=== PATIENT | male | born 1980 | race Caucasian/White ===

== ENCOUNTER 2018-08-19 06:00 | Outpatient (CLI) | payer BC ==
[~2018-08-19] VITALS: Ht 190.5 cm; Wt 117.9 kg
[2018-08-19] MEDS ORDERED: LOSA1TAB26 PO (15:40)
[2018-08-19] MEDS ORDERED: AMLO2.5T4 PO (15:40)
== END 2018-08-19 15:43 | disposition home or self-care (01) ==
LOC: PREOP 06:00
PROVIDERS: ATTEND Internal Medicine
DX: Z01.818 Encounter for other preprocedural examination (principal)

== ENCOUNTER 2018-08-23 07:34 | Day surgery (SDC) | payer BC ==
--- NOTE | 2018-08-19 19:21 | HISTORY AND PHYSICAL ---
DATE OF SERVICE: COLONOSCOPY HISTORY AND PHYSICAL HISTORY OF PRESENT ILLNESS: The patient is a 37-year-old white male referred for screening colonoscopy per Dr. Amos. There is positive family history for colon cancer, the index case being his grandfather diagnosed around the age of 60. He has an uncle that had colon surgery that he thinks was likely related to diverticulitis and not underlying malignancy. He reports that he has felt well. He denies any bowel habit change. Occasionally, he will have some bright red blood per rectum that has been several months and he associates that with hemorrhoids. He denies any associated pain. His weight has been stable. PAST MEDICAL HISTORY: Significant for hypertension. PAST SURGICAL HISTORY: He had a pilonidal cyst removed from his back several years ago. MEDICATIONS ON ADMISSION: Include amlodipine 2.5 mg daily and unknown dose of losartan/HCTZ daily. ALLERGIES: He reports no known drug allergies. FAMILY HISTORY: Both parents are still living in their 60s and he believes his father has had history of colon polyps and again grandfather was diagnosed with colon cancer at around the age of 60. REVIEW OF SYSTEMS: CONSTITUTIONAL: He denies night sweats, chills, fever or weight change. CARDIOVASCULAR: He denies chest pain, dyspnea on exertion, orthopnea, PND, pedal edema, presyncope or syncope. CHEST: He denies shortness of breath, dyspnea on exertion, cough or wheezing. GASTROINTESTINAL: As per HPI. PHYSICAL EXAMINATION: GENERAL: Reveals a pleasant white male, appears to be in no acute distress. VITAL SIGNS: He is approximately 6 feet tall, weighing 260.8 pounds, blood pressure 120/90, slightly anxious. HEENT: Unremarkable. Sclerae nonicteric. There is no evidence for pallor. NECK: Revealed no JVD, adenopathy or bruits. CHEST: Clear to auscultation. CARDIOVASCULAR: Reveals regular rate and rhythm without murmur, S3 or S4. ABDOMEN: Soft, supple without mass, organomegaly or tenderness. EXTREMITIES: Reveal no cyanosis, clubbing or edema. RECTAL EXAM: Deferred at the time of the procedure, set up for 08/23/2018. ASSESSMENT AND PLAN: The patient is set for screening colonoscopy a little earlier than recommended due to family history for colon cancer as noted above. Prep instructions with the Suprep kit were given and questions were answered. Thank you for the referral of this pleasant gentleman. Job ID: [id number] DocumentID: [id number] Dictated Date: 08/08/2018 16:29:53 Director Of Employee Development Date: 08/08/2018 16:59:54 Dictated By: MUSHTAQ GARNETT MD
[~2018-08-23] VITALS: Ht 190.5 cm; Wt 117.9 kg
[~2018-08-23 07:34] MED LIST: AMLO2.5T4 PO; LOSA1TAB26 PO
--- OUTSIDE RECORDS SUMMARY | 2018-08-23 07:39 | XMS REPORT | Continuity of Care Document ---
Author Organization Unknown Address Unknown Allergies Active Description Code Type Severity Reaction Onset Reported/Identified Relationship to Patient Clinical Status Yes No Known Drug Allergies [id number] Drug Allergy Unknown N/A 08/19/2018 Medications There is no data. Problems Date Dx Coded Attending Type Code Diagnosis Diagnosed By 08/19/2018 MUSHTAQ GARNETT MD Ot Z01.818 ENCOUNTER FOR OTHER PREPROCEDURAL EXAMIN Procedures There is no data. Results There is no data. Encounters ACCT No. Visit Date/Time Discharge Status Pt. Type Provider Facility Loc./Unit Complaint [id number] 08/19/2018 06:00:00 08/19/2018 15:43:00 DIS Outpatient MUSHTAQ GARNETT MD [facility] PREOP COLONOSCOPY [id number] 08/26/2012 12:11:00 08/26/2012 23:59:59 CLS Outpatient [id number] 08/23/2018 08:30:00 PEN Preadmit MUSHTAQ GARNETT MD [facility] ENDO SCREENING/FAMILY HX COLON CA 05/23/10 07/02/2018 08:35:01 07/02/2018 23:59:59 CLS Outpatient
[2018-08-23] MEDS ORDERED: D5 LR IV SOLUTION 1,000 ML IV STA (07:42)
[2018-08-23] MEDS ORDERED: D5 LR IV SOLUTION 1,000 ML IV ONE (07:43)
[2018-08-23] MEDS ORDERED: HURRICAINE EXT TUBE (BENZOCAINE) XX PRN (07:45)
[2018-08-23] MEDS ORDERED: LIDOCAINE JELLY 2% 6 ML SYRINGE MM PRN (07:45)
[2018-08-23] MEDS ORDERED: MIDAZOLAM 2 MG/2 ML (VERSED) VIAL IVP ONE (07:45)
[2018-08-23] MEDS ORDERED: fentaNYL INJECTION 100 MCG/2 ML AMP IVP ONE (07:45)
[2018-08-23 07:52] VITALS: BP 139/100
[2018-08-23] MEDS ORDERED: LIDOCAINE JELLY 2% 6 ML SYRINGE ONE (08:30)
[2018-08-23] MEDS ORDERED: MIDAZOLAM 2 MG/2 ML (VERSED) VIAL ONE ×2 (08:30→08:31)
[2018-08-23] MEDS ORDERED: fentaNYL INJECTION 100 MCG/2 ML AMP ONE (08:30)
[2018-08-23 09:15] VITALS: BP 135/86
--- NOTE | 2018-08-23 09:19 | Pre-Op Note & Conscious Sedat ---
Pre-Operative Progress Note H&P Reviewed The H&P was reviewed, patient examined and no changes noted. Date H&P Reviewed: August 23, 2018 Time H&P Reviewed: 07:55 Conscious Sedation Pre-Proced ASA Score 2 For ASA 3 and 4: Consider anesthesia and medical clearance. Also, for patients with a history of failed moderate sedation consider anesthesia. Airway Lungs Heart ASA score ASA 1: a normal healthy patient ASA 2: a patient with a mild systemic disease (mid diabetes, controlled hypertension, obesity ASA 3: a patient with a severe systemic disease that limits activity (angina, COPD, prior Myocardial infarction) ASA 4: a patient with an incapacitating disease that is a constant threat to life (CHF, renal failure) ASA 5: a moribund patient not expected to survive 24 hrs. (ruptured aneurysm) ASA 6: a declared brain- patient whose organs are being harvested. For emergent operations, add the letter E after the classification Mallampati Classification Grade 3 Sedation Plan Analgesia, Amnesia, Plan communicated to team members, Discussed options with patient/fam, Discussed risks with patient/fam The patient is an appropriate candidate to undergo the planned procedure, sedation, and anesthesia. The patient immediately re-assessed prior to indication. MUSHTAQ GARNETT MD August 23, 2018 09:19
[2018-08-23 09:45] VITALS: BP 138/90
--- NOTE | 2018-08-23 20:07 | OPERATIVE REPORT ---
DATE OF SERVICE: COLONOSCOPY SUMMARY REFERRING PHYSICIAN: Dr. Corinne Amos. INDICATION FOR PROCEDURE: Screening colonoscopy, family history for colon cancer. The patient was placed in the left lateral decubitus position. The colonoscope was inserted into the rectum under direct visualization. The colonoscope was advanced to the cecum. The patient tolerated the procedure well. The quality of prep was good. FINDINGS: Rectal evaluation revealed mild to moderate BPH changes without evidence for prostate nodularity or tenderness. The patient does have a prominent perianal skin fold, possible previous hemorrhoid, but no active evidence for hemorrhoids were noted. The rectum, sigmoid and descending colon were unremarkable. Present at the splenic flexure was diminutive 3 mm sessile polyp, was photographed and biopsied and ablated with minimal subsequent blood loss. The transverse colon, hepatic flexure, ascending colon and cecum were unremarkable. ASSESSMENT: 1. One diminutive polyp was removed from the splenic flexure with an otherwise normal colonoscopy to the cecum. Considering family history, we would advocate consideration for repeat surveillance colonoscopy in 5 years as long as there are no surprises on histopathology report. 2. Digital rectal evaluation was compatible with mild to moderate BPH. I thank you for the referral of this pleasant gentleman. Job ID: [id number] DocumentID: [id number] Dictated Date: 08/23/2018 10:41:36 [employer] Architect Date: 08/23/2018 20:06:47 Dictated By: MUSHTAQ GARNETT MD
== END 2018-08-23 09:55 | disposition home or self-care (01) ==
LOC: ENDO 07:34
PROVIDERS: ATTEND Internal Medicine
DX: Z12.11 Encounter for screening for malignant neoplasm of colon (principal); K63.5 Polyp of colon; Z80.0 Family history of malignant neoplasm of digestive organs; N40.0 Benign prostatic hyperplasia without lower urinary tract symptoms; I10 Essential (primary) hypertension; Z79.899 Other long term (current) drug therapy

== ENCOUNTER → 2019-09-25 | Outpatient (CLI) | payer BC | LOC: LABNPT 10:31 | PROVIDERS: ATTEND Family Medicine | DX: R19.7 Diarrhea, unspecified (principal); Z20.828 Contact with and (suspected) exposure to other viral communicable diseases | CPT/HCPCS: 87635 ==

== ENCOUNTER → 2021-06-20 | Outpatient (CLI) | payer BC ==
--- NOTE | 2021-06-20 11:43 | Diagnostic Imaging Report ---
INDICATION: Cough, diffuse wheezing. COMPARISON: None. FINDINGS: Frontal and lateral views of the chest demonstrate normal heart size and pulmonary vascularity. Evaluation of the lung ariza suggests a 12 mm nodular opacity projecting over the right mid to lower lung field. This may be artifactual and related to nipple shadow. Otherwise, the lungs are clear. There is no focal consolidation, large effusion, or pneumothorax. The visualized osseous structures show no acute abnormalities. IMPRESSION: 1. No acute process. No signs of infiltrates, effusions, or pneumothoraces. 2. Nipple shadow versus pulmonary nodule on the right. Repeating the exam with external nipple markers is recommended. Dictated by: Dictated on workstation # [id number]
== END ==
LOC: RAD 10:58
PROVIDERS: ATTEND Family Medicine
DX: R05.9 Cough, unspecified (principal); R06.2 Wheezing
CPT/HCPCS: 71046

== ENCOUNTER → 2021-06-21 | Outpatient (CLI) | payer BC ==
--- NOTE | 2021-06-21 13:58 | Diagnostic Imaging Report ---
INDICATION: Nodules. The study is performed with nipple markers. Correlation is made with prior study one day earlier. Bilateral nipple markers were placed. The nodular density noted in the right mid to lower lung field does not represent a nipple shadow and may represent a pulmonary nodule. Left lung is clear. There is no effusion or pneumothorax IMPRESSION: Right-sided pulmonary nodule. CT of the chest would be recommended for further evaluation. Dictated by: Dictated on workstation # [id number]
== END ==
LOC: RAD 12:32
PROVIDERS: ATTEND Family Medicine
DX: R91.1 Solitary pulmonary nodule (principal)
CPT/HCPCS: 71046

== ENCOUNTER → 2021-06-24 | Outpatient (CLI) | payer BC ==
--- NOTE | 2021-06-24 10:17 | Diagnostic Imaging Report ---
PROCEDURE: CT chest without contrast. TECHNIQUE: Multiple contiguous axial images were obtained through the chest without the use of intravenous contrast. Auto Exposure Controls were utilized during the CT exam to meet ALARA standards for radiation dose reduction. INDICATION: Cough. Correlated with radiograph 06/21/2021. FINDINGS: Radiographic nodularity on the right is owing to a circumscribed smoothly marginated 1.1 cm mass which has a coarse peripheral calcification along its posterolateral wall and its density has areas of negative Hounsfield units and macroscopic fat. This is consistent with benign etiology and a chondroma or hamartoma. This lesion requires no further workup. Infiltrate with tree-in-bud morphology in the lingular segment of the left upper lobe in the setting of cough suspect for infectious bronchiolitis. A similar but less substantial infiltrate in the left upper lobe near the apex laterally present. The right lung clear. No other infiltrate suspected. No suspicious lung mass. No thoracic adenopathy. No abscess, effusion or empyema. There is no pneumothorax. No chest wall pathology. The visualized upper abdomen nonacute. IMPRESSION: 1. Right lung mass is benign with calcified and fatty components requiring no further workup. 2. Infiltrates in the left lung and the upper lobe most notably involve the lingula and have a tree-in-bud as well as scattered groundglass opacity favored to reflect a process such as infectious bronchiolitis. No abscess, adenopathy, effusion or empyema. Dictated by: Dictated on workstation # [id number]
== END ==
LOC: RAD 09:15
PROVIDERS: ATTEND Family Medicine
DX: R91.8 Other nonspecific abnormal finding of lung field (principal); R05.9 Cough, unspecified
CPT/HCPCS: 71250

== ENCOUNTER 2021-09-21 02:36 | Emergency (ER) | payer OTHER, BC ==
[~2021-09-21] VITALS: Ht 190.5 cm; Wt 111.1 kg
[2021-09-21 02:48] VITALS: BP_SYST 108; BP_SYST 116; BP_SYST 119; BP_DIAS 79; BP_DIAS 85; BP_DIAS 92
[2021-09-21] MEDS ORDERED: LIDOCAINE/EPI 1%-1:100,000 (XYLOCAINE) 10 ML ONE (02:59)
[2021-09-21] MEDS ORDERED: LACTATED RINGERS 1,000 ML IV ONE (03:00)
[2021-09-21] MEDS ORDERED: TETANUS,DIPTH,PERTUSS P/F (BOOSTRIX) 0.5 ML VIAL IM ONE (03:00)
[2021-09-21] MEDS ORDERED: LIDOCAINE/EPI 2% 1:100,00 (XYLOCAINE) 20 ML VIAL INJ ONE (03:00)
[2021-09-21] MEDS ORDERED: L.E.T. SOLUTION 3 ML SYR TOP ONE (03:00)
--- NOTE | 2021-09-21 03:02 | ED Fall/Injury ---
General Chief Complaint: Laceration Stated Complaint: UPPER LIP LAC Nursing Triage Note: pt ambulatory to room. pt states he was getting a drink, thinks he "blacked out or something," and realized he had a cut on his upper lip. pt states he had a glass of water, and the glass broke, but he has no idea if the lip was cut on the broken glass or if he hit his face "on the baseboards or something." however, pt states he did not fall or hit the floor or anything. he states he has really no idea how the lac occurred Source: patient, spouse History of Present Illness Date Seen by Provider: Sep 21, 2021 Time Seen by Provider: 02:47 Initial Comments PT ARRIVES VIA POV FROM HOME WITH PT GOT UP TO GET A DRINK, AND WAS WALKING BACK TO BED, AND NOT SURE WHAT HAPPENED--THINKS HE MIGHT HAVE GOTTEN DIZZY OR SOMETHING, BUT HE FELL AGAINST T HE DOOR FRAME, CAUSING A LACERATION ABOVE HIS RIGHT UPPER LIP AREA, AND HITTING HIS RIGHT BROW AREA DID NOT ACTUALLY FALL TO THE FLOOR OR HAVE A SYNCOPAL EPISODE-- HEARD HIM AND IMMEDIATELY AND HE WAS STILL STANDING UP AND WAS ACTING NORMAL. NO INJURY TO LIPS OR TEETH NO VISION CHANGES NO HEADACHE NO NECK PAIN NOT DIZZY NOW NO NAUSEA/VOMITING NO CHEST PAIN OR PALPITATIONS OR SHORTNESS OF BREATH NO FEVER OR RECENT ILLNESS STATES FOR THE LAST 4 DAYS HE HAS BEEN OUT IN THE HEAT AT [employer] ALL WE EKEND WELL SUNDAY AND SUNDAY ( HEAT INDEX > 100 ALL WEEKEND) HAS HISTORY OF HTN, NO MEDICATION CHANGES NO OTHER MEDICAL PROBLEMS LAST TETANUS UNKNOWN PCP: DR. POWER Allergies and Home Medications Allergies Coded Allergies: No Known Drug Allergies (Unverified , 08/19/18) Patient Home Medication List Home Medication List Reviewed: Yes Amlodipine Besylate (Amlodipine Besylate) 2.5 Mg Tablet, 2.5 MG PO DAILY, (Reported) Entered as Reported by: GONZALO SPARROW on 08/19/18 1540 Cephalexin (Cephalexin) 500 Mg Tablet, 500 MG PO QID Prescribed by: NORBERT LAWS on 09/21/21 0352 Losartan/Hydrochlorothiazide (Losartan-Hctz 100-12.5 mg Tab) 1 Each Tablet, 1 EACH PO DAILY, (Reported) Entered as Reported by: GONZALO SPARROW on 08/19/18 1540 Review of Systems Review of Systems Constitutional: see HPI Eyes: See HPI; Denies Blurred Vision, Denies Decreased Acuity, Denies Vision Changes Ears, Nose, Mouth, Throat: see HPI Respiratory: no symptoms reported Cardiovascular: no symptoms reported Gastrointestinal: no symptoms reported Genitourinary: no symptoms reported Musculoskeletal: no symptoms reported Skin: see HPI Psychiatric/Neurological: See HPI; Denies Headache, Denies Numbness, Denies Paresthesia, Denies Seizure, Denies Tingling, Denies Weakness Past Smvebrd-Sxbehe-Rlgrnv Hx Patient Social History Tobacco Use?: No Smoking Status: Never a Smoker Smokeless Tobacco Frequency: Never a User Use of E-Cig and/or Vaping Eugenio: Never a User Substance use?: No Alcohol Use?: No Seasonal Allergies Seasonal Allergies: Yes Past Medical History Surgeries: No Respiratory: No Cardiac: Yes Hypertension Neurological: No Genitourinary: No Gastrointestinal: No Musculoskeletal: No Endocrine: No HEENT: No Cancer: No Psychosocial: No Integumentary: No Blood Disorders: No Physical Exam Vital Signs Vital Signs - First Documented 09/21/21 02:41 Temp 36.2 Pulse 100 Resp 20 B/P (MAP) 120/94 (103) Pulse Ox 95 Capillary Refill : Height, Weight, BMI Height: 6'3.00" Weight: 260lbs. 0.0oz. [id number]; 30.00 BMI Method: General Appearance: WD/WN, no apparent distress HEENT: PERRL/EOMI, TMs normal, pharynx normal, other (LACERATION ABOVE RIGHT UPPER LIP--NOT THRU AND THRU. LIPS, TEETH AND GUMS ARE ALL INTACT. NOSE IS NORMAL. SOME TENDERNESS AND SLIGHT REDNESS TO RIGHT BROW AREA. 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 Wound Length (cm): 4 Wound's Depth, Shape: irregular (CURVED ), sub Q Wound Explored: clean Betadine Prep?: No (BETASEPT) Anesthesia: Lidocaine w/ Epi (ALSO LET APPLIED. ) Suture: Ethlion Suture Size: 5-0 Number of Sutures: 8 Layer Closure?: 1 Progress/Results/Core Measures Results/Orders Lab Results Laboratory Tests Test 09/21/21 03:00 Range/Units White Blood Count 9.4 4.3-11.0 10^3/uL Red Blood Count 5.02 4.30-5.52 10^6/uL Hemoglobin 15.1 13.3-17.7 g/dL Hematocrit 45 40-54 % Mean Corpuscular Volume 90 80-99 fL Mean Corpuscular Hemoglobin 30 25-34 pg Mean Corpuscular Hemoglobin Concent 34 32-36 g/dL Red Cell Distribution Width 17.6 H 10.0-14.5 % Platelet Count 264 130-400 10^3/uL Mean Platelet Volume 9.8 9.0-12.2 fL Immature Granulocyte % (Auto) 0 % Neutrophils (%) (Auto) 54 42-75 % Lymphocytes (%) (Auto) 30 12-44 % Monocytes (%) (Auto) 10 0-12 % Eosinophils (%) (Auto) 4 0-10 % Basophils (%) (Auto) 1 0-10 % Neutrophils # (Auto) 5.1 1.8-7.8 10^3/uL Lymphocytes # (Auto) 2.9 1.0-4.0 10^3/uL Monocytes # (Auto) 0.9 0.0-1.0 10^3/uL Eosinophils # (Auto) 0.4 H 0.0-0.3 10^3/uL Basophils # (Auto) 0.1 0.0-0.1 10^3/uL Immature Granulocyte # (Auto) 0.0 0.0-0.1 10^3/uL Sodium Level 142 135-145 MMOL/L Potassium Level 3.7 3.6-5.0 MMOL/L Chloride Level 102 98-107 MMOL/L Carbon Dioxide Level 24 21-32 MMOL/L Anion Gap 16 H 5-14 MMOL/L Blood Urea Nitrogen 15 7-18 MG/DL Creatinine 1.16 0.60-1.30 MG/DL Estimat Glomerular Filtration Rate 81 BUN/Creatinine Ratio 13 Glucose Level 103 70-105 MG/DL Calcium Level 9.5 8.5-10.1 MG/DL Corrected Calcium 9.3 8.5-10.1 MG/DL Magnesium Level 2.1 1.6-2.4 MG/DL Total Bilirubin 0.4 0.1-1.0 MG/DL Aspartate Amino Transf (AST/SGOT) 26 5-34 U/L Alanine Aminotransferase (ALT/SGPT) 37 0-55 U/L Alkaline Phosphatase 51 40-136 U/L Total Protein 7.2 6.4-8.2 GM/DL Albumin 4.3 3.2-4.5 GM/DL My Orders Orders - NORBERT LAWS DO Ed Iv/Invasive Line Start (09/21/21 02:55) Monitor-Rhythm Ecg Trace Only (09/21/21 02:55) Orthostatic Vital Signs (Adult (09/21/21 02:55) Ct Head/Maxillofacial Wo (09/21/21 02:55) Cbc With Automated Diff (09/21/21 02:55) Comprehensive Metabolic Panel (09/21/21 02:55) Magnesium (09/21/21 02:55) Ed Iv/Invasive Line Start (09/21/21 02:55) Lactated Ringers (Lr 1000 Ml Iv Solution (09/21/21 03:00) Dipht,Pertuss(Acell),Tet Adult (Boostrix (09/21/21 03:00) Lidocaine/Epi 2% 1:100,000 (Xylocaine/Ep (09/21/21 03:00) Let Solution (Let Solution) (09/21/21 03:00) Lidocaine/Epi 1% 1:100,000 (Xylocaine 1% (09/21/21 02:59) Cephalexin Capsule (Keflex Capsule) (09/21/21 04:00) Medications Given in ED Current Medications Medications Dose Ordered Sig/Kacie Route Start Time Stop Time Status Last Admin Dose Admin Diphtheria/ Tetanus/Acell Pertussis 0.5 ml ONCE ONCE IM 09/21/21 03:00 09/21/21 03:02 DC 09/21/21 03:05 0.5 ML Lactated Ringer's 1,000 ml @ 0 mls/hr Q0M ONCE IV 09/21/21 03:00 09/21/21 03:02 DC 09/21/21 03:02 0 MLS/HR Tetracaine/ Epinephrine/ Lidocaine 3 ml ONCE ONCE TOP 09/21/21 03:00 09/21/21 03:02 DC 09/21/21 03:02 3 ML Vital Signs/I&O 09/21/21 09/21/21 02:41 02:48 Temp 36.2 Pulse 100 92 100 116 Resp 20 B/P (MAP) 120/94 (103) 119/79 (92) 116/92 (100) 108/85 (93) Pulse Ox 95 Blood Pressure Mean: 93 Progress Progress Note : Progress Note ORTHOSTATICS ABNORMAL GIVEN IV FLUIDS Diagnostic Imaging Comments CT HEAD/MAXILLOFACIALS--NO ACUTE PROCESS, PER [facility] VIA FAX AT 9836 Reviewed: Reviewed by Me Departure Impression Primary Impression: Fall from standing Additional Impressions: Volume depletion Facial laceration Facial contusion Nbxjmwbxyd-ruxlhomtw-ysolyfo (DPT) vaccination administered at current visit Disposition: 01 HOME, SELF-CARE Condition: Improved Departure-Patient Inst. Decision time for Depature: 03:50 Referrals: VIGNESH POWER DO (PCP/Family) Primary Care Physician Patient Instructions: Dehydration, Adult ED, Eye Contusion (DC), Laceration Repair With Stitches (DC), Diphtheria and Tetanus Toxoids, and Acellular Pertussis Vaccine Add. Discharge Instructions: CLEAN WOUND TWICE A DAY WITH ANTIBACTERIAL SOAP AND WATER ON A Q-TIP, OTHERWISE KEEP CLEAN AND DRY SOFT FOODS, AVOID CHEWING AND USING A STRAW TYLENOL AND MOTRIN NEEDED FOR PAIN ' ICE TO SORE AREAS AT 20 MINUTE INTERVALS INCREASE YOUR FLUID INTAKE--WATER, GATORADE, ETC. SUTURES OUT IN 5-6 DAYS--RETURN TO ER FOR REMOVAL All discharge instructions reviewed with patient and/or family. Voiced understanding. Scripts Cephalexin (Cephalexin) 500 Mg Tablet 500 MG PO QID, #20 TAB 0 Refills Prov: NORBERT LAWS DO 09/21/21 NORBERT LAWS DO Sep 21, 2021 03:02
[2021-09-21 03:06] LABS: BASOPHILS # (AUTO) 0.1 10^3/uL (0.0-0.1); BASOPHILS % (AUTO) 1 % (0-10); EOSINOPHILS # (AUTO) 0.4 10^3/uL (0.0-0.3); EOSINOPHILS % (AUTO) 4 % (0-10); HEMATOCRIT 45 % (40-54); HEMOGLOBIN 15.1 g/dL (13.3-17.7); LYMPHOCYTES # (AUTO) 2.9 10^3/uL (1.0-4.0); LYMPHOCYTES % (AUTO) 30 % (12-44); MEAN CORPUSCULAR HEMOGLOBIN 30 pg (25-34); MEAN CORPUSCULAR HGB CONC 34 g/dL (32-36); MEAN CORPUSCULAR VOLUME 90 fL (80-99); MEAN PLATELET VOLUME 9.8 fL (9.0-12.2); MONOCYTES # (AUTO) 0.9 10^3/uL (0.0-1.0); MONOCYTES % (AUTO) 10 % (0-12); NEUTROPHILS # (AUTO) 5.1 10^3/uL (1.8-7.8); NEUTROPHILS % (AUTO) 54 % (42-75); PLATELET COUNT 264 10^3/uL (130-400); WHITE BLOOD COUNT 9.4 10^3/uL (4.3-11.0)
[2021-09-21 03:18] LABS: ALBUMIN 4.3 GM/DL (3.2-4.5); POTASSIUM 3.7 MMOL/L (3.6-5.0)
[2021-09-21 03:19] LABS: CALCIUM 9.5 MG/DL (8.5-10.1)
[2021-09-21 03:20] LABS: TOTAL PROTEIN 7.2 GM/DL (6.4-8.2)
[2021-09-21 03:22] LABS: BILIRUBIN,TOTAL 0.4 MG/DL (0.1-1.0)
[2021-09-21 03:24] LABS: CREATININE SERUM 1.16 MG/DL (0.60-1.30)
[2021-09-21 03:27] LABS: MAGNESIUM 2.1 MG/DL (1.6-2.4)
[2021-09-21] MEDS ORDERED: CEPH500T PO (03:52)
[2021-09-21] MEDS ORDERED: CEPHALEXIN 250 MG (KEFLEX) CAP PO SCH (04:00)
[2021-09-21 04:05] VITALS: BP 130/89
--- NOTE | 2021-09-21 06:57 | Diagnostic Imaging Report ---
PROCEDURE: CT head and maxillofacial without contrast. TECHNIQUE: Multiple contiguous axial images were obtained through the head and facial bones without the use of intravenous contrast. Auto Exposure Controls were utilized during the CT exam to meet ALARA standards for radiation dose reduction. INDICATION: Syncopal episode. Fall. Cut along the right upper lip. CT HEAD: The ventricles and cortical gyral pattern are normal. There is no evidence of intracranial hemorrhage. No mass effect. No extra-axial fluid collection. Basal cisterns are clear. The mastoid air cells and paranasal sinuses are well-aerated. There is some mild edema in the right ethmoid sinus. No calvarial fractures. IMPRESSION: 1. No acute intracranial abnormalities. 2. Mild inflammatory changes noted right ethmoid air cells. CT FACIAL BONES. No fractures are seen of the facial bones. The orbital rims are intact. Zygomatic arches appear normal. There is mild edema in right ethmoid air cells. Nasal septum shows moderate deviation to the right. IMPRESSION: 1. No acute abnormalities noted. 2. Mild inflammatory changes of the ethmoid air cells with deviation nasal septum to the right. Dictated by: Dictated on workstation # [id number]
== END 2021-09-21 04:11 | disposition home or self-care (01) ==
LOC: EDUNIT# 02:36 → ER 02:39
DX: S01.511A Laceration without foreign body of lip, initial encounter (principal); E86.9 Volume depletion, unspecified; Z23 Encounter for immunization; W18.30XA Fall on same level, unspecified, initial encounter
CPT/HCPCS: 36415; 70450; 70486; 80053; 83735; 85025; 90715; 93041

== ENCOUNTER 2021-09-27 10:48 | Emergency (ER) | payer OTHER, BC ==
[~2021-09-27] VITALS: Ht 190 cm; Wt 111.0 kg
[~2021-09-27 10:48] MED LIST changes: +CEPH500T PO
[2021-09-27 11:11] VITALS: BP 133/91
== END 2021-09-27 11:11 | disposition home or self-care (01) ==
LOC: EDUNIT# 10:48 → ER 10:50
DX: Z48.02 Encounter for removal of sutures (principal)

== ENCOUNTER 2023-02-23 15:36 | Emergency (ER) | payer OTHER, BC ==
--- NOTE | 2023-02-23 15:48 | ED Fall/Injury ---
General Chief Complaint: Trauma-Non Activation Stated Complaint: FALL - RT HIP AND LOWER BACK PAIN Source: patient Exam Limitations: no limitations History of Present Illness Date Seen by Provider: Feb 23, 2023 Time Seen by Provider: 15:48 Initial Comments Patient is a 42-year-old male who presents to the emergency room by private veh icle with his chief complaint right hip pain, right buttock "numbness" after falling approximately 15 feet out of a tree stand. Patient states the fall happened at about 130. He states he landed on the ground, was able to get up and ambulate to his truck. Went home, applied ice and heat and took a hydrocodone approximately 245. He got a little nauseous and sweaty. His decided to bring him in for evaluation. He denies numbness tingling or weakness to the right lower extremity. Did not lose control of his bowel or bladder with the fall. Has not urinated since 130. Denies numbness to the perineum, genitals. Is not currently nauseated. No abdominal pain, no chest pain or shortness of breath. Points to the right posterior hip/SI joint as source of pain and states only the buttock appears to be "numb". Occurred: this afternoon (1330) Severity: moderate Injuries/Pain Location: pelvis (right), lower extremity Context: other (fell from tree stand) Loss of Consciousness: no loss of consciousness Associated Symptoms (Fall): Denies Symptoms Allergies and Home Medications Allergies Coded Allergies: No Known Drug Allergies (Unverified , 08/19/18) Patient Home Medication List Home Medication List Reviewed: Yes Amlodipine Besylate (Amlodipine Besylate) 2.5 Mg Tablet, 2.5 MG PO DAILY, (Reported) Entered as Reported by: GONZALO SPARROW on 08/19/18 154 Cephalexin (Cephalexin) 500 Mg Tablet, 500 MG PO QID Prescribed by: NORBERT LAWS on 09/21/21 0352 Losartan/Hydrochlorothiazide (Losartan-Hctz 100-12.5 mg Tab) 1 Each Tablet, 1 EACH PO DAILY, (Reported) Entered as Reported by: GONZALO SPARROW on 08/19/18 1540 Review of Systems Review of Systems Constitutional: see HPI Eyes: No Symptoms Reported Ears, Nose, Mouth, Throat: no symptoms reported Respiratory: no symptoms reported Cardiovascular: no symptoms reported Gastrointestinal: nausea ((resolved now)) Genitourinary: no symptoms reported Musculoskeletal: back pain (low spine/buttock on the right); No neck pain Skin: no symptoms reported Psychiatric/Neurological: Numbness (right buttock) Past Wxghvmd-Qfczzn-Ddotao Hx Seasonal Allergies Seasonal Allergies: Yes Past Medical History Surgeries: No Respiratory: No Cardiac: Yes Hypertension Neurological: No Genitourinary: No Gastrointestinal: No Musculoskeletal: No Endocrine: No HEENT: No Cancer: No Psychosocial: No Integumentary: No Blood Disorders: No Physical Exam Vital Signs Vital Signs - First Documented 02/23/23 15:43 Temp 36.1 Pulse 65 Resp 18 B/P (MAP) 164/103 (123) Pulse Ox 98 Capillary Refill : Height, Weight, BMI Height: 6'3.00" Weight: 260lbs. 0.0oz. [id number]; 30.00 BMI Method:Stated General Appearance: WD/WN, no apparent distress HEENT: PERRL/EOMI Neck: full range of motion, normal inspection Cardiovascular: regular rate, rhythm Respiratory: lungs clear, normal breath sounds, no respiratory distress, no accessory muscle use Gastrointestinal: normal bowel sounds, non tender, soft Extremities: other (stable pelvis; tenderness to the right SI joint; no overlying ecchymoses/abrasion; Neg SLR bilaterally; no saddle anesthesia; normal dorsiflexion bilateral feet, normal plantar flexion; ) Neurologic/Psychiatric: alert, normal mood/affect, oriented x 3, sensory deficit (right buttock) Skin: normal color, warm/dry Procedures/Interventions Suture Size: 5-0 Progress/Results/Core Measures Results/Orders My Orders Orders - KIANA RINCON MD Pelvis With Right Hip 2-3views (02/23/23 15:54) Vital Signs/I&O 02/23/23 15:43 Temp 36.1 Pulse 65 Resp 18 B/P (MAP) 164/103 (123) Pulse Ox 98 Progress Progress Note : Time: 16:19 Progress Note Patient seen and evaluated by me. Evaluation today includes history and phy sical exam with pelvis x-ray and 3 views of the right hip. Pertinent physical exam findings well-developed well-nourished male no acute distress, no focal neurologic deficits, he does have some subjective sensory loss over the right buttock. No perineal or "saddle" anesthesia. No incontinence. Normal strength and sensation in the bilateral lower extremities. Point tenderness over the right SI joint, mild tenderness around the sciatic insertion. No skin changes/ecchymoses. ddx includes pelvic fracture, hip fracture X-rays independently reviewed and interpreted by me, no obvious fractures or dislocation in the pelvis or right hip. Radiologist interpretation/read concurs with this. Patient is advised to take NSAIDs, alternate heat and ice. Follow- up with primary care. He is given strict return precautions and both verbal and written format, both he and his verbalized understanding. All questions are sought and answered. Diagnostic Imaging Diagonstic Imaging: Xray Comments [facility], [place] NAME: SARMAD DELUCA [facility] REC#: [id number] PT STATUS: REG ER : 1980 PHYSICIAN: KIANA RINCON MD ADMIT DATE: 02/23/23/ER Signed Date of Exam:02/23/23 PELVIS WITH RIGHT HIP 2-3VIEWS PELVIS WITH RIGHT HIP 2-3VIEWS INDICATION: Right hip trauma COMPARISON: None available. TECHNIQUE: AP pelvis with AP and lateral views of the hip. FINDINGS: Alignment of the hip is normal. There are no features of avascular necrosis in the femoral head. No fracture or concerning focal osseous lesion. IMPRESSION: No acute osseous abnormality about the hip. Dictated by: Dictated on workstation # [id number] Dict: 02/23/23 1608 Trans: 02/23/23 1609 [facility] [id number] Interpreted by: DEREK XIE MD Electronically signed by: DEREK XIE MD 02/23/23 1609 Departure Impression Primary Impression: Contusion of right buttock Disposition: 01 HOME, SELF-CARE Condition: Stable Departure-Patient Inst. Decision time for Depature: 16:19 Referrals: VIGNESH POWER DO (PCP/Family) Primary Care Physician Patient Instructions: Contusion (DC) Add. Discharge Instructions: Alternate heat and ice to the sore area of your buttock and hip for discomfort. Rvak-hqr-kjijvns ibuprofen 3 tablets which is 600 mg every 6 hours with food as needed for pain. Follow-up with your primary care provider next week if symptoms are persisting. Return to the emergency department for any new, concerning or emergent complaints. Copy Copies To 1: VIGNESH POWER KATHRYN M MD Feb 23, 2023 15:48
--- NOTE | 2023-02-23 16:10 | Diagnostic Imaging Report ---
PELVIS WITH RIGHT HIP 2-3VIEWS INDICATION: Right hip trauma COMPARISON: None available. TECHNIQUE: AP pelvis with AP and lateral views of the hip. FINDINGS: Alignment of the hip is normal. There are no features of avascular necrosis in the femoral head. No fracture or concerning focal osseous lesion. IMPRESSION: No acute osseous abnormality about the hip. Dictated by: Dictated on workstation # [id number]
[2023-02-23 16:30] VITALS: BP 164/103
== END 2023-02-23 16:30 | disposition home or self-care (01) ==
LOC: EDUNIT# 15:36 → ER 15:39
DX: S30.0XXA Contusion of lower back and pelvis, initial encounter (principal); W14.XXXA Fall from tree, initial encounter